=== PATIENT | female | born 1980 | race Caucasian/White ===

== ENCOUNTER 2018-05-04 11:37 | Emergency (ER) | payer SELFPAY ==
[~2018-05-04] VITALS: Ht 160 cm; Wt 81.6 kg
[2018-05-04 11:43] VITALS: BP 111/86
--- NOTE | 2018-05-04 11:48 | NUR ---
PT AMBULATES TO BED 8
--- NOTE | 2018-05-04 12:08 | NUR ---
Patient being evaluated by physician at bedside.
--- NOTE | 2018-05-04 12:09 | NUR ---
PATIENT PRESENTS TO ED WITH C/O ABDOMINAL PAIN, N/V/D. AAOX4 WITH EVEN AND STEADY GAIT; LUNGS CLEAR BL; HR EVEN AND REGULAR; PT DENIES ANY FEVER, CP, SOB, OR COUGH AT THIS TIME; PATIENT STATES PAIN OF 8/10 AT THIS TIME; VSS; PATIENT POSITIONED FOR COMFORT; HOB ELEVATED; BEDRAILS UP X2; BED DOWN. ER MD MADE AWARE OF PT STATUS.
[2018-05-04] MEDS ORDERED: KETOROLAC 60 MG/2 ML VIAL IM ONE (12:10)
[2018-05-04] MEDS ORDERED: LOPERAMIDE 2 MG CAP PO ONE (12:10)
[2018-05-04] MEDS ORDERED: ONDANSETRON 4 MG ODT PO ONE (12:10)
[2018-05-04 12:52] VITALS: BP 112/82
--- NOTE | 2018-05-04 12:52 | NUR ---
Patient discharged with v/s stable. Written and verbal after care instructions given and explained. Patient alert, oriented and verbalized understanding of instructions. Ambulatory with steady gait. All questions addressed prior to discharge. ID band removed. Patient advised to follow up with PMD. Rx of BENTYL, IMODIUM, PROMETHAZINE given. Patient educated on indication of medication including possible reaction and side effects. Opportunity to ask questions provided and answered.
== END 2018-05-04 12:52 | disposition home or self-care (01) ==
LOC: MED 11:37
DX: K29.70 Gastritis, unspecified, without bleeding (principal)
CPT/HCPCS: 99283; J1885; Q0162